=== PATIENT | female | born 2000 | race Caucasian/White ===

== ENCOUNTER 2025-02-22 15:50 | Emergency (ER) | payer OTHER, SELFPAY ==
[2025-02-22 15:52] VITALS: BP 154/86; PULSE 107; RESP 20; TEMP 36.2; O2SAT 100
--- NOTE | 2025-02-22 16:10 | ED.VIS.LOWEX ---
HPI History of Present Illness Chief Complaint: Lower Extremity Injury Informant: patient Narrative Narrative: Inversion injury right ankle during obstacle course at school. She was racing a student. No other injuries. Has twisted her ankle in the past. No medications taken. Allergies to penicillin. Prior similar symptoms: Yes PFSH PFSH Medical History Migraines Home Medications ?Medication ?Instructions ?Recorded ?Last Taken ?Type duloxetine 60 mg capsule,delayed 60 mg PO DAILY 02/22/25 Unknown History release Allergy/AdvReac Type Severity Reaction Status Date / Time Penicillins Allergy Mild Hives Verified 02/22/25 15:51 Family History no significant family his Surgical History H/O wisdom tooth extraction Social History current occupational status: employed Smoking Status: Never smoker ROS ROS ED Constitutional Constitutional ED: Denies fever(s) Cardiovascular Cardiovascular: Denies chest pain Respiratory/Chest Respiratory/Chest: Denies cough Gastrointestinal Gastrointestinal: Denies diarrhea or vomiting Musculoskeletal Musculoskeletal: Reports other Details: Right ankle injury Integumentary Denies rash or wounds Neurologic Neurologic: Denies weakness EXAM Physical Exam Const Vital Signs: 02/22/25 15:52 Temperature 97.2 F L Temperature Source Temporal Pulse Rate 107 H Respiratory Rate 20 H Blood Pressure 154/86 H Blood Pressure Mean 108 Pulse Ox 100 Oxygen Delivery Method Room Air Positive well nourished and well developed Constitutional Narrative: GCS 15 General Appearance ED: well developed HEENT normocephalic and atraumatic Eyes General Eye ED: Yes normal appearance of both eyes Neck full ROM Resp normal respiratory effort and normal air movement Cardio regular rate and regular rhythm GI soft to palpation Extremity Extremity Narrative: Right lower extremity: No hip or knee tenderness. No medial mall tenderness. Swelling to lateral malleolus. Mild tenderness distal fibula tenderness ATFL calcaneofibular. Skin intact. No midfoot or proximal fifth base tenderness. Neuro oriented x3 Skin no rashes or lesions noted and no wounds MDM MDM MDM Narrative Medical decision making narrative: Interventions / MDM: Differential diagnosis: Sprain Diagnosis considered but do not suspect: Fracture or dislocation however x-ray negative. My EKG interpretation: N/A Imaging independently reviewed and interpreted by myself: Right ankle x-ray 3 views: Soft tissue swelling no fracture or dislocation. External documents reviewed: N/A Test considered but not ordered:N/A ED course: Patient declines any pain medicines. Ice placed on the ankle. X-rays ordered for further evaluation. X-ray negative. James wrap Aircast provided she declines any crutches. She will use Tylenol Motrin every 6 hours as needed. Outpatient with occupational health as needed. School year is over therefore she is not going back to work therefore no restrictions as needed. All questions were answered. Re-evaluation: stable Disposition discussed with patient/family/significant other: Patient Case discussed with consulting clinician: N/A This note was generated with [employer] dictation software. It may contain incorrect words, spelling, and punctuation that were not noted in checking the note before signing. Radiography Diagnostic Testing: Clinical Impression(s) from Imaging Studies Ankle X-Ray 02/22/25 16:15 IMPRESSION: Soft tissue swelling, without displaced fracture. Reading Location: [id number] Discharge Plan Triage Chief Complaint: Lower Extremity Injury ED Provider: Chi Sanders Dx/Rx/DC Orders Clinical Impression: Right ankle sprain, Work related injury Instructions: ED Ankle Sprain (Adult) Prescriptions: No Action duloxetine 60 mg capsule,delayed release(DR/EC) 60 mg PO DAILY Primary Care Provider: Adrianna Moon Referrals: Adrianna Moon MD [Primary Care Provider] - 1 Week Activity Restrictions/Additional Instructions: X-ray negative. Use James wrap and stirrup for comfort. Tylenol or ibuprofen every 6 hours as needed. Follow-up with occupational health if needed. Print Language: Taiwanese Disposition Disposition: Home, Self Care
--- NOTE | 2025-02-22 16:15 | RAD_ITS ---
PROCEDURE: ANKLE MIN 3 VIEWS 02/22/2025 REASON FOR EXAM: INJURY TECHNIQUE: 3 views of the right ankle COMPARISON: None FINDINGS: No displaced fracture or traumatic malalignment. Talar dome is intact. Ankle mortise is symmetric. No significant joint effusion. Soft tissue swelling, predominantly lateral and anterior. RAD/Ankle min 3 Views IMPRESSION: Soft tissue swelling, without displaced fracture. Reading Location: [id number]
[2025-02-22 16:50] VITALS: BP 105/74; PULSE 78; RESP 16; TEMP 36.8; O2SAT 98
== END 2025-02-22 16:51 | disposition home or self-care (01) ==
PROVIDERS: Emergency Provider Emergency Medicine; PCP Family Medicine; Visit Provider Emergency Medicine
DX: S93.401A Sprain of unspecified ligament of right ankle, initial encounter (principal); X58.XXXA Exposure to other specified factors, initial encounter; Y93.A5 Activity, obstacle course; Y92.218 Other school as the place of occurrence of the external cause
CPT/HCPCS: 73610; 99283